=== PATIENT | male | born 1985 | race African-American/Black ===

== ENCOUNTER 2019-09-14 22:29 | Emergency (ER) | payer OTHER ==
[2019-09-14 22:43] VITALS: BP 143/83; PULSE 92; TEMP 98.1; BMI 26.4
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
[2019-09-14] MEDS ORDERED: AZITHROMYCIN 500 MG TABLET PO ONE (23:22)
[2019-09-14] MEDS ORDERED: RALTEGRAVIR POTASSIUM 400 MG TAB PO ONE (23:23)
[2019-09-14] MEDS ORDERED: EMTRICITABINE 200MG/TENOFOVIR 300MG PO ONE (23:23)
[2019-09-14] MEDS ORDERED: HIV POST EXPOSURE PROPHYLAXIS KIT PO ONE (23:30)
[2019-09-14] MEDS ORDERED: AZITHROMYCIN 250 MG TABLET ONE (23:30)
[2019-09-14] MEDS ORDERED: LIDOCAINE HCL 1%, 10 MG/ML (20ML VIAL) ONE (23:31)
[2019-09-14] MEDS ORDERED: cefTRIAXone SODIUM 1 GM VIAL ONE (23:31)
[2019-09-15 00:15] LABS: BASO % 0.5 % (0-2.0); EOS % 2.9 % (0-4.5); HEMATOCRIT 39.2 % (35.4-49); LYMPH % 33.9 % (8-40); MCH 26.5 pg (25.7-33.7); MCHC 33.2 g/dl (32.0-35.9); MEAN CELL VOLUME 79.8 fl (80-96); MEAN PLT VOLUME 9.3 fl (7.5-11.1); MONO % 8.7 % (3.8-10.2); PLATELET COUNT 202 K/MM3 (134-434); RBC 4.91 M/mm3 (4.00-5.60); RDW 14.1 % (11.9-15.9); WHITE BLOOD COUNT 7.2 K/mm3 (4.0-10.0)
[2019-09-15 00:40] LABS: ALBUMIN 4.1 g/dl (3.4-5.0); BILIRUBIN,TOTAL 0.7 mg/dL (0.2-1); CALCIUM 9.6 mg/dL (8.5-10.1); POTASSIUM 3.6 mmol/L (3.5-5.1); TOT PROT 8.1 g/dl (6.4-8.2)
== END 2019-09-15 00:33 | disposition home or self-care (01) ==
LOC: JER 22:29
DX: Z20.2 Contact with and (suspected) exposure to infections with a predominantly sexual mode of transmission (principal); Z29.8 Encounter for other specified prophylactic measures
CPT/HCPCS: 36415; 80053; 82465; 85025; 86317; 86704; 86706; 86803; 87340; 87389; 99284-25